=== PATIENT | female | born 1995 | race Caucasian/White ===

== ENCOUNTER 2024-04-01 18:06 | Emergency (ER) | payer OTHER, SELFPAY ==
[2024-04-01 18:09] VITALS: BP 100/64; PULSE 100; RESP 16; TEMP 37.1; O2SAT 97; BMI 25.6
[2024-04-01 18:21] LABS: MANUAL DIFF FLAG NO
[2024-04-01 18:27] LABS: Basophils Percent Auto 0.3 % (0-2); Hematocrit 32.7 % (37.0-47.0); Hemoglobin 11.9 g/dl (12.0-16.0); Imm Gran Abs Auto 0.02 X10*3/uL (0.00-0.03); Imm Gran Pct Auto 0.3 % (0.0-0.4); Lymphocytes Percent Auto 13.8 % (20-40); Mean Corpuscular HGB Conc 36.4 g/dl (31.0-35.0); Mean Corpuscular Volume 76.9 fL (80.0-98.0); Mean Platelet Volume 9.5 fL (9.4-12.3); Monocytes Absolute Auto 0.8 X10*3/uL (0.1-1.2); Monocytes Percent Auto 10.2 % (2-11); Neutrophils Absolute Auto 5.7 x10*3/uL (2.0-8.3); Neutrophils Percent Auto 75.4 % (45-73); Platelet Count 280 X10*3/uL (160-400); Red Blood Count 4.25 X10*6/uL (4.20-5.50); Red Cell Distribution Width 13.4 % (11.0-16.0); White Blood Count 7.5 X10*3/uL (4.8-10.8)
[2024-04-01 18:41] LABS: Alanine Aminotransferase 19 U/L (0-31); Albumin Level 4.6 g/dL (3.5-5.0); Alkaline Phosphatase 58 U/L (39-117); Anion Gap 13 (12-20); Aspartate Amino Transferase 20 U/L (5-31); Bilirubin Total 0.3 mg/dL (0.0-1.0); Blood Urea Nitrogen 10 mg/dL (9-16); Calcium 8.8 mg/dL (8.4-10.2); Carbon Dioxide 23 mmol/L (22-29); Chloride 105 mmol/L (96-108); Creatinine Clr Calc Pharmacy 83.6; Estimated Glomerular Filt Rate > 60; Glucose Random 94 mg/dL (60-115); Potassium 3.4 mmol/L (3.3-5.1); Sodium 138 mmol/L (135-145); Total Protein 7.8 g/dL (6.5-8.0)
--- NOTE | 2024-04-01 19:16 | ED_ITS ---
HPI - General Adult General Chief complaint: Abdominal Pain Stated complaint: fever, vomiting Time Seen by Provider: 04/01/24 22:39 Source: patient Limitations: no limitations History of Present Illness ED Provider: Diann Mo PA-C HPI narrative: 28-year-old female presents with cough and cold symptoms x3 days. Associated fever, body aches, malaise, nasal congestion, nausea/ vomiting and generalized abdominal discomfort. Denies diarrhea or sick contacts with same symptoms. Related Data Previous Rx's ?Medication ?Instructions ?Recorded ondansetron HCl 4 mg tablet 4 mg PO Q8H PRN nausea and 04/02/24 vomiting #10 tabs Allergies Allergy/AdvReac Type Severity Reaction Status Date / Time No Known Allergies Allergy Verified 04/01/24 18:10 Review of Systems 2 Review of Systems: Yes all other systems are reviewed and are negative Constitutional: Constitutional: Reports fatigue, Reports fever(s) and Reports malaise ENT: Reports nasal congestion Cardiovascular: Cardiovascular: Denies chest pain Respiratory: Respiratory: Denies cough and Denies wheezing Gastrointestinal: Gastrointestinal: Reports abdominal pain, Denies diarrhea, Reports nausea and Reports vomiting Endocrine: Endocrine: Reports fatigue Allergic/Immunologic: Allergic/Immunologic: Denies wheezing PMFSH Past Medical History Attestation statement: The following information was validated with the patient. Social History Social History Advance Directives: No Advance Directives Information Provided: No Do you have a plan to hurt others: No Plan Physical Exam ED Vital Signs: Vital Signs - 24 hr 04/01/24 18:09 04/02/24 00:05 Temperature 98.8 F 100.1 F Pulse Rate 100 Respiratory Rate 16 Blood Pressure 100/64 Pulse Oximetry 97 Oxygen Delivery Method Room Air BMI result Body Mass Index 25.6 Const Other: Alert, ill in appearance Orientation/consciousness: patient oriented x3 Resp Effort & Inspection: normal respiratory effort Cardio Other: Normal peripheral perfusion Skin Other: Warm dry no rash Neuro General: patient oriented x3, no focal motor deficits and CN's II-XI intact bilaterally Psych Other: Calm cooperative Course Course Course Narrative: This is an RME performed by Gerry Spencer CNP: Additional HPI, ROS, PE not included below will be deferred to primary provider. Patient is a 28-year-old female who presents emergency department for evaluation, she has been experiencing fevers for the past 2 days and then today began experiencing nausea, vomiting, diffuse abdominal pain Plan: Serum labs, urinalysis, viral serologies Medications Administered Generic Name Dose Route Start Last Admin Trade Name Mau PRN Reason Stop Dose Admin Sodium Chloride 1,000 mls @ 999 mls/hr 04/01/24 23:30 04/01/24 23:45 Ns IV 04/02/24 00:30 999 mls/hr .Q1H1M ANGELO Administration Discontinued Medications Generic Name Dose Route Start Last Admin Trade Name Mau PRN Reason Stop Dose Admin Ketorolac Tromethamine 15 mg 04/01/24 23:22 04/01/24 23:45 Ketorolac Tromethamine 15 Mg/Ml Vial IVPUSH 04/01/24 23:23 15 mg ONCE ONE Administration Ondansetron HCl 4 mg 04/01/24 23:22 04/01/24 23:46 Ondansetron Hcl 4 Mg/2 Ml Vial IVPUSH 04/01/24 23:23 4 mg ONCE ONE Administration Medical Decision Making Medical Decision Making MDM Narrative: 28-year-old female presents with cough and cold symptoms x3 days. Associated fever, body aches, malaise, nasal congestion, nausea/ vomiting and generalized abdominal discomfort. Denies diarrhea or sick contacts with same symptoms. No chronic issues History: Per patient I have considered the following differential diagnoses: Viral syndrome, acute intra-abdominal pathology, Plan: Screening labs were obtained from triage including a viral panel, the patient is positive for influenza A. Her abdominal exam was nonfocal, she does not require imaging. We will provide supportive care. I have independently reviewed the following tests: Labs: No leukocytosis, not anemic, no electrolyte abnormalities, viral panel positive for influenza A Lab Data 04/01/24 18:17 04/01/24 18:17 Labs: Lab Results 04/01/24 04/01/24 Range/Units 18:17 19:00 WBC 7.5 (4.8-10.8) X10*3/uL RBC 4.25 (4.20-5.50) X10*6/uL Hgb 11.9 L (12.0-16.0) g/dl Hct 32.7 L (37.0-47.0) % MCV 76.9 L (80.0-98.0) fL MCH 28.0 (27.0-33.0) pg MCHC 36.4 H (31.0-35.0) g/dl RDW 13.4 (11.0-16.0) % Plt Count 280 (160-400) X10*3/uL MPV 9.5 (9.4-12.3) fL Immature Gran % (Auto) 0.3 (0.0-0.4) % Neut % (Auto) 75.4 H (45-73) % Lymph % (Auto) 13.8 L (20-40) % Yates % (Auto) 10.2 (2-11) % Eos % (Auto) 0.0 (0-4) % Baso % (Auto) 0.3 (0-2) % Lymph # (Auto) 1.0 L (1.2-4.9) X10*3/uL Yates # (Auto) 0.8 (0.1-1.2) X10*3/uL Eos # (Auto) 0.0 (0.0-0.4) X10*3/uL Baso # (Auto) 0.0 (0.0-0.2) X10*3/uL Abs Immat Gran (auto) 0.02 (0.00-0.03) X10*3/uL Absolute Neuts (auto) 5.7 (2.0-8.3) x10*3/uL Absolute Nucleated RBC 0.000 (0.0-0.012) X10*3/uL Nucleated RBC % (auto) 0.0 (0.0-0.2) /100WBC Sodium 138 (135-145) mmol/L Potassium 3.4 (3.3-5.1) mmol/L Chloride 105 (96-108) mmol/L Carbon Dioxide 23 (22-29) mmol/L Anion Gap 13 (12-20) BUN 10 (9-16) mg/dL Creatinine 0.80 (0.5-1.4) mg/dL Estim Creat Clear Calc 83.6 Estimated GFR > 60 Random Glucose 94 (60-115) mg/dL Calcium 8.8 (8.4-10.2) mg/dL Total Bilirubin 0.3 (0.0-1.0) mg/dL AST 20 (5-31) U/L ALT 19 (0-31) U/L Alkaline Phosphatase 58 (39-117) U/L Total Protein 7.8 (6.5-8.0) g/dL Albumin 4.6 (3.5-5.0) g/dL Influenza Type A (PCR) POSITIVE A (Negative) Influenza Type B (PCR) NEGATIVE (Negative) RSV RNA Qual (PCR) NEGATIVE (Negative) SARS-CoV-2 RNA (RT-PCR) NEGATIVE (Negative) Discharge Plan Discharge Clinical Impression: Influenza A Patient Disposition: Home, Self-Care Instructions: Influenza (ED) Additional Instructions: You tested positive for influenza a, see home care instructions. Uses Zofran as needed for nausea vomiting. Alternate the use of [id number]-npi-gwtalnr ibuprofen 600 mg taken every 6 hours with food, with ccfu-cir-lhygnpy Tylenol 1000 mg taken every 8 hours, as needed for body aches and fever. Follow up with your primary care provider as needed. Prescriptions: New ondansetron HCl 4 mg tablet 4 mg PO Q8H PRN (Reason: nausea and vomiting) Qty: 10 0RF Stand Alone Forms: Work/School Release Print Language: Setswana
[2024-04-01 19:41] LABS: Influenza A PCR POSITIVE (Negative); Influenza B PCR NEGATIVE (Negative); Resp Syncy Virus RNA Qual PCR NEGATIVE (Negative); SARS COV2 PCR INHOUSE NEGATIVE (Negative)
[2024-04-01] MEDS: 0.9 % Sodium Chloride 1,000 ML 999 ML IV (23:45)
[2024-04-01] MEDS: Ketorolac Tromethamine 15 MG/ML VIAL IVPUSH (23:45)
[2024-04-01] MEDS: ondansetron HCL 4 MG/2 ML VIAL IVPUSH (23:46)
[2024-04-02 00:05] VITALS: TEMP 37.8
[2024-04-02 00:51] VITALS: BP 96/56; PULSE 73; RESP 16; TEMP 37.7; O2SAT 96
== END 2024-04-02 00:52 | disposition home or self-care (01) ==
PROVIDERS: Nurse Practitioner Family; Emergency Provider Emergency Medicine; PCP Internal Medicine
DX: J10.1 Influenza due to other identified influenza virus with other respiratory manifestations (principal); R50.9 Fever, unspecified; R11.2 Nausea with vomiting, unspecified; R05.9 Cough, unspecified; M79.10 Myalgia, unspecified site; R09.81 Nasal congestion; R10.2 Pelvic and perineal pain; Z03.818 Encounter for observation for suspected exposure to other biological agents ruled out; Z79.899 Other long term (current) drug therapy
CPT/HCPCS: 0241U; 36415; 80053; 85025; 96361; 96374; 96375; 99284; J1885; J2405